=== PATIENT | female | born 1965 | race African-American/Black ===

== ENCOUNTER 2016-11-09 07:58 | Day surgery (SDC) | payer OTHER ==
[2016-11-04 13:46] VITALS: BMI 27.4
[2016-11-09] MEDS ORDERED: PROPOFOL 20 ML ONE ×2 (08:03)
--- NOTE | 2016-11-09 09:47 | ED.PROV ---
Physicial Exam - Vital Signs Last Vital Signs Temp Pulse Resp BP Pulse Ox 99.2 F 96 H 22 154/88 99 11/04/16 13:39 11/04/16 13:39 11/04/16 13:39 11/04/16 13:39 11/04/16 13:39 - Physical Exam Reason for Response: 11/09/16 09:41 50-year-old female with essentially negative past medical history, who is on no regular medications other than Tylenol, and is on no blood thinners She was here today for her first routine screening colonoscopy Her colonoscopy was done with MAC with propofol, and she tolerated the procedure well She went back to her room, and rang the nurse to help her get to the bathroom She went to the bathroom and was sitting on the toilet, and was supposed to ring for the nurse to help her get off the toilet She was still feeling a little groggy from the anesthesia She got up off the toilet on her own, and was washing her hands in the bathroom , and fell, striking her right elbow and right hand There was no loss of consciousness and no syncope She denies any head injury or loss of consciousness, and she denies any neck or back pain She states that she only bumped her right elbow and right hand She denies any shoulder pain or hip pain She was helped back to her bed, and the ER physician was called to evaluate the patient Physical exam Last Vital Signs Temp Pulse Resp BP Pulse Ox 99.2 F 96 H 22 154/88 99 11/04/16 13:39 11/04/16 13:39 11/04/16 13:39 11/04/16 13:39 11/04/16 13:39 Patient is alert, sitting comfortably in bed, eating a food tray GENERAL: The patient is awake, alert, and fully oriented, and in no apparent distress. HEAD: Normal with no signs of trauma. NECK: Normal range of motion, supple No C-spine tenderness BACK: No T-spine or LS-spine tenderness No posterior rib tenderness LUNGS: Clear HEART: Regular rate and rhythm, ABDOMEN: Soft, nontender, EXTREMITIES: Full range of motion of the hips and shoulders bilaterally Right upper extremity- There is full range of motion of the right elbow, without any abrasions or bruises noted There is full range of motion of the right wrist, without any abrasions or bruises noted There is full range of motion of the right hand, without any abrasions or bruises noted Patient is able to make a fist and open her hand without difficulty and sensation is intact in all fingers NEUROLOGICAL: Cranial nerves II through XII grossly intact. Normal speech, alert and oriented 3, motor 5 out of 5 and equal in the upper lower extremities bilaterally Grossly nonfocal neurologic exam PSYCH: Normal mood, normal affect. SKIN: Warm, Dry no bruising noted Critical Care Time/MDM Note - Medical Decision Making Note: 11/09/16 09:46 Impression-fall in bathroom after getting off the toilet and washing hands, due to still being a little groggy from the MAC anesthesia, and not ringing for assistance No obvious bruising is seen, no obvious injury is seen, and there was no syncope , or head trauma with loss of consciousness Patient sitting up in bed, smiling, laughing, and eating breakfast, and feeling much better Nurse will continue to monitor patient
[2016-11-09 10:21] VITALS: BP 124/67; PULSE 78; TEMP 97.6
== END 2016-11-09 10:20 | disposition home or self-care (01) ==
LOC: FASU-ENDO 07:58
PROVIDERS: ATTEND Internal Medicine Gastroenterology
PROC: 0DJD8ZZ Inspection of Lower Intestinal Tract, Via Natural or Artificial Opening Endoscopic (ICD-10-PCS; principal; 2016-11-09 08:43)
DX: Z12.11 Encounter for screening for malignant neoplasm of colon (principal); W18.39XA Other fall on same level, initial encounter; Y93.89 Activity, other specified; Y92.231 Patient bathroom in hospital as the place of occurrence of the external cause
CPT/HCPCS: 84703